=== PATIENT | male | born 2000 | race Caucasian/White ===

== ENCOUNTER 2020-11-27 15:18 | Emergency (ER) | payer OTHER, SELFPAY ==
[2020-11-27 15:50] VITALS: BP 130/77; PULSE 87; RESP 16; TEMP 36.8; O2SAT 99; BMI 19.3
[2020-11-27 15:52] LABS: UTC Strep Screen (Rapid) Positive (Negative)
--- NOTE | 2020-11-27 16:22 | HMH.EDUTC ---
[facility] [place] Disposition Clinical Impression: Strep throat Disposition: Home, Self-Care Condition on Discharge: Good Instructions: Strep Throat, DI for Strep Throat Additional Instructions: *Monitor Temp, Over the counter Motrin or Tylenol as directed/as needed Tylenol every 4 hours and Motrin every 6 hours (as long as your family doctor has told you that you can take it) for fever or pain. and straight to ER if unable to lower temp less than 101.0 after medication given *Warm salt water gargles may help to soothe the throat *Throat Lozenges *Warm fluids like tea with honey may help to soothe the throat *Sleep elevated *Humidifier/Vaporizer Take medication as prescribed Follow up IMMEDIATELY for new or worsening symptoms or no Noticeable improvement over the next 48-72 hours. 911 for difficulty breathing or swallowing Prescriptions: Amoxicillin [Amoxicillin 500mg Cap] 500 mg PO BID 10 Days #20 cap Transmission Status: Received by [id number] Referrals: Alonso Blackwood [Primary Care Provider] - As needed Forms: Work/School Release Time of Disposition: 16:47 Medical Decision Making - Arthur Inquiry Pt receiving controlled substance: No Arthur was queried for this patient: No Vital Signs: 11/27/20 15:50 11/27/20 16:58 Temperature 98.3 F 98 F Temperature Source Oral Pulse Rate 83 Pulse Rate [Right] 87 Respiratory Rate 16 18 Blood Pressure 127/74 Blood Pressure [Right Arm] 130/77 Blood Pressure Mean [Right Arm] 94 Blood Pressure Source [Right Arm] Automatic Cuff Blood Pressure Position [Right Arm] Sitting 02 Sat by Pulse Oximetry 99 - Lab Data Lab results reviewed: Yes: I reviewed the patient's lab results. Lab Results 11/27/20 15:40: Strep Scn Rapid Clinic Positive A [facility] [place] HPI - General Stated complaint: sore throat Time Seen by Provider: 11/27/20 16:22 Mode of Arrival: Ambulatory Source of Information: Patient Limitations: No Limitations Description of Symptoms (Recalled from Triage Doc. by RN): pt c/o sore throat since yesterday. HEENT Symptoms (Recalled from RN notes): Yes (sore throat) Resp Symptoms (Recalled from RN notes): No Skin Symptoms (Recalled from RN notes): No MS Symptoms (Recalled from RN notes): No Functional Status (Recalled from RN notes): na - History of Present Illness Provider Complaint: Patient state that he has been having sore throat that has continued to get worse since yesterday States that his throat hurts when he swallows and feels like it did when he has had strep throat - Related Data Previous Rx's Medication Instructions Recorded Amoxicillin [Amoxicillin 500mg 500 mg PO BID 10 Days #20 cap 11/27/20 Cap] Allergies Allergy/AdvReac Type Severity Reaction Status Date / Time No Known Allergies Allergy Verified 11/27/20 15:53 - Worker's Comp Is this a Worker's Comp case?: No [facility] History - Hepatitis A Screen Drug use history?: No High risk sexual behaviors?: No History of sexually transmitted infection?: No Currently employed?: No Childcare worker?: No Do you have indoor plumbing?: Yes Do you have electricity?: Yes Attestation statement:: This patient has been screened for Hepatitis A risk factors. I have reviewed the patient's past medical history: Yes - Social History Smoking Status: Unknown if ever smoked Alcohol Intake: never Occupational Status: other ROS Obtained: Yes All systems reviewed & no additional complaints, Yes Systems reviewed as appropriate & no additional complaints - Constitutional Constitutional: Reports system reviewed and no additional complaints, except as docu - Eyes Eyes: Reports system reviewed and no additional complaints, except as docu - ENT Ears, Nose, Mouth, and Throat: Reports system reviewed and no additional complaints, except as docu, Reports sore throat - Cardiovascular Cardiovascular: Reports system reviewed and no additional complaints, except as docu Physical
[2020-11-27 16:58] VITALS: BP 127/74; PULSE 83; RESP 18; TEMP 36.6
== END 2020-11-27 16:59 | disposition home or self-care (01) ==
PROVIDERS: Emergency Provider Nurse Practitioner; PCP Pediatrics
DX: J02.0 Streptococcal pharyngitis (principal)
CPT/HCPCS: 87880; 99202; G0463

== ENCOUNTER 2024-02-17 22:58 | Emergency (ER) | payer OTHER, SELFPAY ==
[2024-02-18 00:12] VITALS: BP 139/86; PULSE 66; RESP 15; TEMP 37.1; O2SAT 99; BMI 19.1
--- NOTE | 2024-02-18 00:23 | HMH.EDGENADL ---
Discharge Plan Disposition Patient Disposition: Home, Self-Care Prescriptions Prescriptions: New prednisone 20 mg tablet 60 mg PO DAILY 21 Days Qty: 42 0RF Rx Instructions: Take 60 mg daily for 1 week, then take 40 mg daily for 1 week, then take 20 mg daily for 1 week No Action amoxicillin 500 MG capsule 500 mg PO BID 10 Days Qty: 20 0RF Referrals Follow up/Referrals: Alonso Blackwood [Primary Care Provider] - See instructions Activity Restrictions/Add. Instructions Additional Instructions/Restrictions: Please take steroids as prescribed. Please follow-up with your primary care provider. Please return to the emergency department if you develop any new or worsening symptoms or become concerned for your health. Clinical Impressions Clinical Impression: Allergic dermatitis due to poison roosevelt Instructions Patient Instructions: DI for Skin Abscess Print Language Print Language: Lao Discharge ED Provider: Brennan Chirinos General Adult HPI General Chief complaint: Skin/Abscess/Foreign Body Stated complaint: rash all over body Time Seen by Provider: 02/18/24 00:13 Mode of Arrival: Family Vehicle Source of Information: Patient Limitations: No Limitations Description of Symptoms (Recalled from ER Triage Doc. by RN): 23 yo male presents with CC of red spots in various areas that are itchy and driving him crazy . Afebrile. No other complaints. History of Present Illness HPI narrative: 23-year male without significant past medical history presents for diffuse itchy rash that been present for approximate last 10 days. He reports that they had a tree fall down and it had poison roosevelt/poison oak on it. He was heavily involved in removing the tree and he has been itchy since that time. They have tried innumerable topical meds without success. Related Data Previous Rx's ?Medication ?Instructions ?Recorded amoxicillin 500 mg capsule 500 mg PO BID 10 days #20 caps 11/27/20 prednisone 20 mg tablet 60 mg (3 x 20 mg) PO DAILY 21 days 02/18/24 #42 tabs Allergies Allergy/AdvReac Type Severity Reaction Status Date / Time No Known Allergies Allergy Verified 11/27/20 15:53 [facility] Disclaimer: The information contained in this section may have been updated after the patient was seen, as this information can be updated by other users. Social History Smoking Status: Unknown if ever smoked alcohol intake: never current occupational status: other Travel in the last 8 weeks: None ROS Obtained: Yes All systems reviewed & no additional complaints except as documented Physical Exam General General appearance: alert and in no apparent distress Head Head exam: atraumatic and normocephalic Eye Eye exam: Present normal appearance, PERRL and EOMI ENT ENT exam: Present normal oropharynx and normal external ear exam Neck Neck exam: Present normal inspection and full ROM Chest Chest inspection: Present normal inspection and symmetric chest wall rise; Absent tenderness Respiratory Respiratory exam: Present normal lung sounds bilaterally; Absent respiratory distress Cardiovascular Cardiovascular exam: Present regular rate and normal rhythm Abdominal Exam Abdominal exam: Present soft; Absent distention, tenderness or guarding Extremities Exam Extremities exam: Present normal inspection; Absent edema or joint swelling Back Exam Back exam: Present normal inspection; Absent tenderness Neurological Exam Neurological exam: Present alert and oriented X3; Absent motor sensory deficit Psychiatric Psychiatric exam: Present normal affect and normal mood Skin Skin exam: Present warm, dry, normal color and rash (Pruritic rash that appears consistent with contact dermatitis) Lymphatic Lymphatic Findings: no adenopathy Medical Decision Making Medical Records Medical records reviewed: Yes I reviewed the patient's medical records. Arthur Inquiry Pt receiving controlled substance: No Arthur was queried for this patient: No Vital Signs: 02/18/24 00:12 02/18/24 00:40 Temperature 98.7 F 98 F Temperature Source Oral Pulse Rate 54 L Pulse Rate [Right Brachial] 66 Respiratory Rate 15 20 Blood Pressure 129/94 H Blood Pressure [Right Arm] 139/86 Blood Pressure Mean [Right Arm] 103 Blood Pressure Source Automatic Cuff Blood Pressure Source [Right Arm] Automatic Cuff Blood Pressure Position Sitting Blood Pressure Position [Right Arm] Sitting 02 Sat by Pulse Oximetry 99 Oxygen Delivery Method Room Air Room Air Lab Data Lab results reviewed: Yes I reviewed the patient's lab results. Orders (Tests/Meds): ED MEDICATIONS Discontinued Medications Generic Name Dose Route Start Last Admin Trade Name Freq PRN Reason Stop Dose Admin Prednisone 60 mg 02/18/24 00:24 02/18/24 00:31 Prednisone 20mg Tab PO 02/18/24 00:25 60 mg ONCE ONE Administration Medical Decision Narrative: 23-year-old male without significant past medical history presents for pruritic generalized rash after contact with poison roosevelt/poison oak. Differential diagnosis includes but limited to allergic contact dermatitis, abscess, cellulitis. History and exam is most consistent with contact dermatitis. Given duration of symptoms and lack of improvement with topical therapy, will prescribe prednisone course for treatment. Patient was instructed follow-up with PCP. Procedures Risk/Benefits of Procedure(s) Were Explained: Yes Critical Care Critical Care Time Critical Care Time: No
[2024-02-18] MEDS: predniSONE 20MG TAB 60 MG PO (00:31)
[2024-02-18 00:40] VITALS: BP 129/94; PULSE 54; RESP 20; TEMP 36.6; O2SAT 98
== END 2024-02-18 00:42 | disposition home or self-care (01) ==
LOC: ER 02-18 00:29
PROVIDERS: Emergency Provider Emergency Medicine; PCP Pediatrics
DX: L23.7 Allergic contact dermatitis due to plants, except food (principal); W60.XXXA Contact with nonvenomous plant thorns and spines and sharp leaves, initial encounter
CPT/HCPCS: 99283